=== PATIENT | female | born 1990 | race Asian ===

== ENCOUNTER 2018-02-04 00:15 | Inpatient (IN) | payer SELFPAY ==
[~2018-02-04] VITALS: Ht 160 cm; Wt 65.3 kg
[2018-02-04] MEDS ORDERED: CLINDAMYCIN 900 MG in DEXTROSE 5% 100 ML IV SCH (01:00)
[2018-02-04] MEDS: LACTATED RINGERS 1,000 ML IV SCH ×2 (01:25→02:25)
[2018-02-04 01:28] LABS: APPEARANCE,URINE CLEAR (CLEAR); BILIRUBIN,URINE NEGATIVE (NEGATIVE); BLOOD, URINE NEGATIVE (NEGATIVE); COLOR,URINE YELLOW (YELLOW); LEUKOCYTE ESTERASE ,URINE NEGATIVE (NEGATIVE); NITRITE, URINE NEGATIVE (NEGATIVE); UGLUCOSE NEGATIVE (NEGATIVE)
[2018-02-04 01:29] LABS: BASOPHILS % (AUTO) 0.3 % (0.0-2.0); EOSINOPHILS # (AUTO) 0.1 K/uL (0-0.4); EOSINOPHILS % (AUTO) 1.8 % (0.0-4.0); HEMATOCRIT 34.8 % (36-48); HEMOGLOBIN 11.7 g/dL (12.0-16.0); LYMPHOCYTES # (AUTO) 1.6 K/uL (2.5-16.5); LYMPHOCYTES % (AUTO) 22.1 % (20.5-51.1); MEAN CORPUSCULAR HEMOGLOBIN 32 pg (27-31); MEAN CORPUSCULAR HGB CONC 34 g/dL (33-37); MEAN CORPUSCULAR VOLUME 95.4 fL (80-94); MONOCYTES # (AUTO) 0.7 K/uL (0.8-1.0); MONOCYTES % (AUTO) 10.3 % (1.7-9.3); NEUTROPHILS # (AUTO) 4.6 K/uL (1.8-7.7); NEUTROPHILS % (AUTO) 65.5 % (42.2-75.2); PLATELET COUNT (AUTO) 169 K/uL (140-450); RED BLOOD CELL COUNT(AUTO) 3.64 MIL/uL (4.20-5.40); RED CELL DISTRIBUTION WIDTH 12.6 % (11.6-13.7)
[2018-02-04 01:43] LABS: ALBUMIN 2.9 g/dL (3.4-5.0); ANION GAP 11.9 (8-16); CARBON DIOXIDE 24.8 mmol/L (21-32); CREATININE 0.4 mg/dL (0.6-1.3); POTASSIUM 3.7 mmol/L (3.5-5.1); TOTAL BILIRUBIN 0.2 mg/dL (0.0-1.0)
[2018-02-04] MEDS ORDERED: PREN-546 PO (03:00)
[2018-02-04] MEDS ORDERED: FERR325E14 PO (03:00)
[2018-02-04 03:04] VITALS: BP 99/62
[2018-02-04] MEDS ORDERED: CITRIC ACID/SODIUM CITRATE 30 ML UDC PO ONE (03:10)
[2018-02-04] MEDS ORDERED: CLINDAMYCIN 900 MG/6 ML VIAL IV ONE (05:06)
[2018-02-04] MEDS ORDERED: CITRIC ACID/SODIUM CITRATE 30 ML UDC ONE (05:10)
[2018-02-04] MEDS ORDERED: ONDANSETRON 4 MG/2 ML VIAL ONE (05:55)
[2018-02-04] MEDS ORDERED: OXYTOCIN 10 UNITS/ML VIAL ONE (05:59)
[2018-02-04] MEDS ORDERED: TRIAMCINOLONE 40 MG/ML 5ML VIAL ONE (05:59)
[2018-02-04] MEDS ORDERED: METHYLERGONOVINE 0.2 MG/ML AMP ONE (06:00)
[2018-02-04] MEDS ORDERED: fentaNYL 0.05 MG/ML VIAL ONE (06:05)
[2018-02-04] MEDS ORDERED: MORPHINE PRES FREE 10 MG/10 ML AMP IV ONE (06:05)
[2018-02-04] MEDS ORDERED: MIDAZOLAM 2 MG/2 ML VIAL ONE (06:05)
[2018-02-04] MEDS ORDERED: KETAMINE 500 MG/5 ML VIAL ONE (06:05)
[2018-02-04] MEDS ORDERED: BUPIVACAINE-MPF 0.75% 10 ML VIAL INJ ONE (06:06)
[2018-02-04] MEDS ORDERED: oxyCODONE/APAP 5/325 MG 1 TAB TAB PO PRN (06:45)
[2018-02-04] MEDS ORDERED: TRIMETHOBENZAMIDE 200 MG/2 ML SYR IM PRN (06:45)
[2018-02-04] MEDS ORDERED: METHYLERGONOVINE 0.2 MG/ML AMP IM PRN (06:45)
[2018-02-04] MEDS ORDERED: ONDANSETRON 4 MG/2 ML VIAL IVP PRN (06:45)
[2018-02-04] MEDS ORDERED: IBUPROFEN 800 MG TAB PO PRN (06:45)
[2018-02-04] MEDS ORDERED: SIMETHICONE 80 MG TAB.CHEW PO PRN (06:45)
[2018-02-04] MEDS ORDERED: diphenhydrAMINE 50 MG/ML VIAL IVP PRN (06:45)
[2018-02-04] MEDS ORDERED: TEMAZEPAM 15 MG CAP PO PRN (06:45)
[2018-02-04] MEDS ORDERED: MEASLES, MUMPS, AND RUBELLA 1 VIAL SQVAC PRN (06:45)
[2018-02-04] MEDS ORDERED: KETOROLAC 30 MG/ML VIAL IVP PRN (06:45)
--- NOTE | 2018-02-04 09:17 | NUR ---
PATIENT HAS BEEN SCREENED AND CATEGORIZED LOW NUTRITION RISK. PATIENT WILL BE SEEN WITHIN 7 DAYS OF ADMISSION. 02/10/[address]
[2018-02-04] MEDS: OXYTOCIN 20 UNITS in LACTATED RINGERS 1,000 ML IV SCH ×2 (14:28→22:33)
[2018-02-04] MEDS: DOCUSATE SOD/SENNA 50/8.6 MG 1 TAB PO SCH (20:59)
[2018-02-05 06:42] LABS: BASOPHILS % (AUTO) 0.1 % (0.0-2.0); HEMATOCRIT 27.9 % (36-48); HEMOGLOBIN 9.6 g/dL (12.0-16.0); LYMPHOCYTES # (AUTO) 1.1 K/uL (2.5-16.5); LYMPHOCYTES % (AUTO) 9.1 % (20.5-51.1); MEAN CORPUSCULAR HEMOGLOBIN 32 pg (27-31); MEAN CORPUSCULAR HGB CONC 34 g/dL (33-37); MEAN CORPUSCULAR VOLUME 93.9 fL (80-94); MONOCYTES # (AUTO) 0.6 K/uL (0.8-1.0); MONOCYTES % (AUTO) 5.2 % (1.7-9.3); NEUTROPHILS # (AUTO) 10.1 K/uL (1.8-7.7); NEUTROPHILS % (AUTO) 85.6 % (42.2-75.2); PLATELET COUNT (AUTO) 154 K/uL (140-450); RED BLOOD CELL COUNT(AUTO) 2.97 MIL/uL (4.20-5.40); RED CELL DISTRIBUTION WIDTH 12.5 % (11.6-13.7); WHITE BLOOD COUNT (AUTO) 11.8 K/uL (4.8-10.8)
[2018-02-05] MEDS: DOCUSATE SOD/SENNA 50/8.6 MG 1 TAB PO SCH (21:09)
[2018-02-05] MEDS: HYDROcodone/APAP 5/325 MG 1 TAB TAB PO PRN (21:14)
[2018-02-06] MEDS: DOCUSATE SOD/SENNA 50/8.6 MG 1 TAB PO SCH (21:08)
[2018-02-07] MEDS: HYDROcodone/APAP 5/325 MG 1 TAB TAB PO PRN (12:59)
[2018-02-07] MEDS: DOCUSATE SOD/SENNA 50/8.6 MG 1 TAB PO SCH (21:00)
== END 2018-02-07 22:55 | disposition home or self-care (01) | DRG 766 ==
LOC: MLD 00:15 → MFCC 08:59
PROVIDERS: ADMIT Obstetrics & Gynecology; ATTEND Obstetrics & Gynecology
PROC: 10D00Z1 Extraction of Products of Conception, Low, Open Approach (ICD-10-PCS; principal; 2018-02-04 06:00)
PROC: 3E0234Z Introduction of Serum, Toxoid and Vaccine into Muscle, Percutaneous Approach (ICD-10-PCS; 2018-02-06)
DX: O32.1XX0 Maternal care for breech presentation, not applicable or unspecified (principal); Z23 Encounter for immunization; Z37.0 Single live birth; Z3A.00 Weeks of gestation of pregnancy not specified
CPT/HCPCS: 36415; 51702; 80053; 81003; 85025; 86592; 86886; 86900; 86901; 90715; J2210; J2250; J2270; J2405; J2590; J3010; J3301; J3490; J7060; J7120